=== PATIENT | male | born 1965 | race Hispanic/Latino ===

== ENCOUNTER 2024-10-05 09:42 | Day surgery (SDC) | payer BC, OTHER ==
[2024-10-04 09:52] LABS: Absolute Basophils 0.1 K/uL (0-0.5); Absolute Eosinophils 0.2 K/uL (0-0.5); Absolute Lymphocytes (CBC) 1.4 K/uL (0.7-4.9); Absolute Monocytes 0.6 K/uL (0.1-1.3); Absolute Neutrophil 4.3 K/uL (1.8-8.0); Basophils % 1.3 % (0-1.3); Eosinophils % 2.6 % (0-4.4); Hematocrit 47.5 % (39.6-49.0); Hemoglobin 16.3 g/dL (13.6-17.9); Lymphocytes % 21.7 % (15.3-44.8); MCH 29.9 pg (27.0-35.0); MCHC 34.3 g/dL (32.0-36.0); MPV 9.6 fL (7.6-11.3); Monocytes % 9.4 % (3.3-12.3); Nucleated Red Blood Cells % 0.1 % (0-0); Platelets 246 thou/uL (152-406); RBC Red Blood Cell Count 5.46 M/uL (4.33-5.43)
[2024-10-04 10:10] LABS: Anion Gap 6.8 mEq/L (5.0-15.0); Potassium 3.8 mEq/L (3.5-5.1)
--- NOTE | 2024-10-04 12:08 | EKG ---
Test Date: 2024-10-04 Test Time: 09:44:11 Invoicing Specialist: MADALYN MEASUREMENT RESULTS: Intervals: Rate: 76 MD: 174 QRSD: 76 QT: 368 QTc: 414 [place]: P: 21 MD: 174 QRS: -1 T: 38 INTERPRETIVE STATEMENTS: Normal sinus rhythm Normal ECG No previous ECG available for comparison Electronically Signed On 10-04-24 12:07:53 CDT by Caio Mae
[2024-10-05] MEDS: Ringers Lactate 1,000 ML IV ONE (10:12)
[2024-10-05] MEDS: CEFAZOLIN SODIUM 1 GM/VIAL ONE (10:41)
[2024-10-05] MEDS ORDERED: ROCURONIUM 50 MG/5 ML VIAL IV ONE (10:43)
[2024-10-05] MEDS ORDERED: FENTANYL CITR 100 MCG/2 ML ONE (10:43)
[2024-10-05] MEDS ORDERED: MIDAZOLAM HCL 2 MG/2 ML INJ ONE (10:43)
[2024-10-05] MEDS ORDERED: KETOROLAC 30 MG/ML INJ ONE (10:43)
[2024-10-05] MEDS ORDERED: LIDOCAINE 1% MPF 5 ML VIAL ONE (10:43)
[2024-10-05] MEDS ORDERED: ONDANSETRON 4 MG/2 ML VIAL ONE (10:43)
[2024-10-05] MEDS ORDERED: propofoL 200 MG/20 ML VIAL IV ONE (10:43)
[2024-10-05] MEDS: LIDOCAINE HCL/EPINEPHRINE 20 ML MDV ONE (11:49)
--- NOTE | 2024-10-05 13:08 | P.OP ---
Preoperative diagnosis: RIGHT Inguinal Hernia Postoperative diagnosis: RIGHT Inguinal Hernia Primary procedure: Open RIGHT Inguinal Hernia Repair with mesh Anesthesia: GETA + Local Estimated blood loss: <5cc Specimen: cord lipoma Findings: large defect in floor of inguinal canal Complications: None Implants: Bard Perfix Large Plug and Patch Hernia Repair system Transferred to: Recovery Room Condition: Good
[2024-10-05 13:30] VITALS: TEMP 97
[2024-10-05] MEDS ORDERED: Ringers Lactate 1,000 ML IV ONE (13:40)
[2024-10-05] MEDS: HYDROMORPHONE HCL 1 MG/ML INJ ONE (13:41)
[2024-10-05] MEDS ORDERED: HYDROMORPHONE HCL 1 MG/ML INJ ONE (13:53)
[2024-10-05] MEDS: HYDROCODONE/APAP 10/325 TAB ONE (14:25)
[2024-10-05 16:12] VITALS: BP 120/75; O2SAT 96
--- NOTE | 2024-10-05 23:41 | OP ---
Date of Procedure: 10/05/2024 Surgeon: Román Vega MD, Preoperative Diagnosis: Right inguinal hernia. Postoperative Diagnosis: Right inguinal hernia. Procedure Performed: Right inguinal hernia repair with mesh. Anesthesia: General endotracheal plus local with 1% lidocaine. Estimated Blood Loss: Less than 5 cc. Specimens: Cord lipoma. Findings: Large defect in the floor of inguinal canal. Complications: None. Implants: Bard PerFix large plug and patch hernia repair system. Disposition: The patient was transferred to recovery room in good condition. Procedure In Detail: After informed consent was obtained, the patient was brought to the operating r oom, prepped and draped in the usual sterile fashion. After adequate anesthesia was achieved, I made an inguinal incision in the right lower inguinal region down to subcutaneous tissues and dissected d own through Camper's fat and Madeline's fascia to expose the external oblique aponeurosis which was ope mian sharply at this point with a 15 blade. I then opened it both proximally and distally using Metze nbaum scissors. At this point, I encircled the spermatic cord structure with [place] drain, separate d the cord lipoma from the spermatic cord and sent off for pathologic examination. At this point, I then proceeded to dissect free the hernia sac from the medial aspect of the spermatic cord structures , which extended all the way into the scrotum. This was from the dartos as well type tissu e. At this point, it was reduced. The preperitoneal space defect was palpated and found to be quite large at this point with softness and laxity of the floor of the inguinal canal. At this point, I b rought in a large Bard PerFix plug, placed it into the preperitoneal space and secured it circumferen tially around using interrupted 2-0 PDS sutures with good approximation of the tissues. At this poin t, the area was irrigated and the patient was placed in reverse Trendelenburg and Valsalva was perfor med. Plug remained in good position at this point. I then deployed the hernia patch and elected ___ orientation, securing it to the pubic tubercle on the medial aspect as well as circumferentia lly around on the undersurface of the inguinal ligament and the shelving edge of the internal oblique aponeurosis. At this point, I reconstituted the deep inguinal ring with same set 2-0 PDS suture in an interrupted fashion and the patch was found to be in good apposition. At this point, I then irrig ated the area once again. Valsalva was performed once again. The repair appeared to be good and int act without tension. At this point, I dried up all the remaining effluent and closed the external ob lique aponeurosis using a 3-0 Vicryl suture in a running fashion and closed the Camper's fat and Scar pa's fascia en bloc at this point, and the deep dermal plane was closed using same set 3-0 Vicryl sut ure as was used on the Camper's fat and Madeline's fascia. At this point, the skin was closed with a 4 -0 Monocryl in a running fashion. Dermabond was placed over top. The patient tolerated the procedur e without incident or complication, transferred to PACU in good condition. All counts were correct a t the end of the case. SUNNI/MOO Voice ID: [id number] Report ID: [id number]
== END 2024-10-05 16:08 | disposition home or self-care (01) ==
LOC: OR 09:42
PROVIDERS: ATTEND Surgery
PROC: 0YU50JZ Supplement Right Inguinal Region with Synthetic Substitute, Open Approach (ICD-10-PCS; principal; 2024-10-05 12:00)
DX: K40.90 Unilateral inguinal hernia, without obstruction or gangrene, not specified as recurrent (principal)
CPT/HCPCS: 93005; 85025; 80048; 36415; 88304; 49505; J2704; J2003; J2250; J3010; J1171 ×2; J2405; J7120 ×2; J0690; 88302